=== PATIENT | female | born 1980 ===

== ENCOUNTER 2017-09-29 19:45 | Emergency (ER) | payer SELFPAY ==
[2017-09-29 20:44] VITALS: TEMP 97.8
--- NOTE | 2017-09-29 20:51 | ED PDOC ---
Arrival/HPI - General Chief Complaint: Abdominal Pain Time Seen by Provider: 09/29/17 20:18 Historian: Patient EM Caveat: Acuity of Condition - History of Present Illness Narrative History of Present Illness (Text): 09/29/17 20:47 36 yr old female w/ hx of appendectomy p/w abdominal pain. abd pain started 3 days ago, throbbing, suprapubic, without radiation. She notes pain feels similiar to previous pain. LMP was august 18. No n/v. No consitpation or diarrhea. No dark or bloody stool. No headache, nausea, vomiting or falls. No medications or allergies per pt. No fever, chills or night sweat. No vaginal d/c. No vaginal bleeding. No other complaints. No other complaints 09/30/17 01:01 Time/Duration: Other (3d) Symptom Onset: Gradual Symptom Course: Unchanged Quality: Aching, Throbbing Severity Level: 4 Past Medical History - Provider Review Nursing Documentation Reviewed: Yes - Travel History Have you recently traveled outside [place] w/in the past 3 mons?: No - Past History Past History: Non-Contributing - Infectious Disease Hx of Infectious Diseases: None - Tetanus Immunization Tetanus Immunization: Unknown - Reproductive Menopause: No Currently : Yes - Past Medical History Past Medical History: Non-Contributing (except: has had appendectomy) - Psychiatric Hx Substance Use: No Family/Social History - Physician Review Nursing Documentation Reviewed: Yes Family/Social History: Unknown Family HX Smoking Status: Never Smoked Hx Alcohol Use: Yes Frequency of alcohol use: Socially Hx Substance Use: No Allergies/Home Meds Allergies/Adverse Reactions: Allergies No Known Allergies Allergy (Verified 09/29/17 20:56) Review of Systems - Review of Systems Constitutional: Normal Eyes: Normal ENT: Normal Respiratory: Normal Cardiovascular: Normal Gastrointestinal: Abdominal Pain. absent: Normal Genitourinary Female: Normal Musculoskeletal: Normal Skin: Normal Neurological: Normal Endocrine: Normal Hemo/Lymphatic: Normal Psychiatric: Normal Physical Exam Vital Signs Temp Pulse Resp BP Pulse Ox 09/29/17 23:42 68 18 112/72 98 09/29/17 20:42 97.8 F 83 16 127/68 100 Temperature: Afebrile Blood Pressure: Normal Pulse: Regular Respiratory Rate: Normal Appearance: Positive for: Well-Appearing, Non-Toxic, Comfortable Pain Distress: None Mental Status: Positive for: Alert and Oriented X 3 - Systems Exam Head: Present: Atraumatic, Normocephalic Pupils: Present: PERRL Extroacular Muscles: Present: EOMI Conjunctiva: Present: Normal Mouth: Present: Moist Mucous Membranes Neck: Present: Normal Range of Motion Respiratory/Chest: Present: Clear to Auscultation, Good Air Exchange. No: Respiratory Distress, Accessory Muscle Use Cardiovascular: Present: Regular Rate and Rhythm, Normal S1, S2. No: Murmurs Abdomen: Present: Tenderness (suprapubic). No: Distention, Peritoneal Signs Back: Present: Normal Inspection Upper Extremity: Present: Normal Inspection. No: Cyanosis, Edema Lower Extremity: Present: Normal Inspection. No: Edema Neurological: Present: GCS=15, CN II-XII Intact, Speech Normal Skin: Present: Warm, Dry, Normal Color. No: Rashes Psychiatric: Present: Alert, Oriented x 3, Normal Insight, Normal Concentration Medical Decision Making ED Course and Treatment: 09/29/17 20:53 36 yr old female w/ hx of appendectomy presents with suprapubic abd pain, likely associated pain. No vaginal d/c. No dark or bloody stool. No urinary complains. No RUQ pain on exam. Planning for labs, US. No vaginal bleeding US, labs unremarkable. single IUP. No UTI on labs pain improved. clear for d/c w/ obgyn f/u 09/30/17 01:02 - Lab Interpretations Lab Results: 09/29/17 21:20 09/29/17 21:20 Lab Results 09/29/17 22:43: Urine Color Yellow, Urine Appearance Clear, Urine pH 6.0, Ur Specific [place] 1.020, Urine Protein Negative, Urine Glucose (UA) Negative, Urine Ketones Negative, Urine Blood Negative, Urine Nitrate Negative, Urine Bilirubin Negative, Urine Urobilinogen 0.2, Ur Leukocyte Esterase Negative 09/29/17 21:20: Beta HCG, Quant [id number] H 09/29/17 21:20: Sodium 137, Potassium 4.1, Chloride 103, Carbon Dioxide 23, Anion Gap 15, BUN 10, Creatinine 0.6 L, Est GFR ( Amer) > 60, Est GFR ( Non-Af Amer) > 60, Random Glucose 82, Calcium 9.1, Total Bilirubin 0.3, AST 32, ALT 30, Alkaline Phosphatase 46, Total Protein 7.3, Albumin 4.2, Globulin 3.1, Albumin/Globulin Ratio 1.3, Lipase 98 09/29/17 21:20: WBC 11.8 H, RBC 4.12, Hgb 12.1, Hct 35.2 L, MCV 85.4, MCH 29.4, MCHC 34.4, RDW 14.2, Plt Count 345, MPV 9.4, Gran % 69.1 H, Lymph % (Auto) 23.4 , [place] % (Auto) 6.8 H, Eos % (Auto) 0.4 L, Baso % (Auto) 0.3, Gran # 8.18 H, Lymph # (Auto) 2.8, [place] # (Auto) 0.8 H, Eos # (Auto) 0.1, Baso # (Auto) 0.04 09/29/17 21:20: Urine HCG, Qual Positive 09/29/17 21:00: Blood Type Confirm A POSITIVE 09/29/17 20:40: Blood Type A POSITIVE, Antibody Screen Negative, BBK History Checked No verified bt - RAD Interpretation Radiology Orders: 09/29/17 20:57 OB TRANSVAGINAL [US] Stat - Medication Orders Current Medication Orders: Discontinued Medications Acetaminophen (Tylenol 325mg Tab) 650 mg PO STAT STA Stop: 09/29/17 20:59 Last Admin: 09/29/17 21:23 Dose: 650 mg Sodium Chloride (Sodium Chloride 0.9%) 1,000 mls @ 999 mls/hr IV .Q1H1M STA Stop: 09/29/17 21:58 Last Admin: 09/29/17 21:23 Dose: 999 mls/hr eMAR Start Stop Document 09/29/17 21:23 CNR (Rec: 09/29/17 21:23 CNR [id number]) Intravenous Solution Start Date 09/29/17 Start Time 21:23 End Date 09/29/17 End time 22:23 Total Infusion Time 60 Disposition/Present on Arrival - Present on Arrival Any Indicators Present on Arrival: No History of DVT/PE: No History of Uncontrolled Diabetes: No Urinary Catheter: No History of Decub. Ulcer: No History Surgical Site Infection Following: None - Disposition Have Diagnosis and Disposition been Completed?: Yes Diagnosis: Abdominal pain in Disposition: HOME/ ROUTINE Disposition Time: 23:00 Condition: GOOD Discharge Instructions (ExitCare): Symptoms, Acetaminophen Additional Instructions: KATELYN ATKINSON, thank you for letting us take care of you today. Your provider was Maximilian Barakat and you were treated for ABDOMINAL PAIN. The emergency medical care you received today was directed at your acute symptoms. If you were prescribed any medication, please fill it and take as directed. It may take several days for your symptoms to resolve. Return to the Emergency Department if your symptoms worsen, do not improve, or if you have any other problems. Please contact your doctor or call one of the physicians/clinics you have been referred to that are listed on the Patient Visit Information form that is included in your discharge packet. Bring any paperwork you were given at discharge with you along with any medications you are taking to your follow up visit. Our treatment cannot replace ongoing medical care by a primary care provider outside of the emergency department. Thank you for allowing the [facility] team to be part of your care today. If you had an X-Ray or CT scan: A Radiologist will review the ED reading if any change in treatment is needed we will contact you. If you had a blood, urine, or wound culture: It will take several days for the results, if any change in treatment is needed we will contact you. If you had an STI test: It will take 48 hours for the results. Please call after 1 week if you have not heard back. Referrals: Claus Cruz MD [Staff Provider] - Follow up with primary Roxanne Le MD [Medical Doctor] - Follow up with primary Forms: [employer] (Georgian)
[2017-09-29] MEDS ORDERED: Sodium Chloride 0.9% 1,000 ML IV STA (20:58)
[2017-09-29 21:42] LABS: BASO # 0.04 K/mm3 (0.0-2.0); BASO % 0.3 % (0.0-3.0); EOS # 0.1 (0.0-0.7); EOS % 0.4 % (1.5-5.0); GRAN # 8.18 (1.4-6.5); GRAN % 69.1 % (50.0-68.0); HEMOGLOBIN 12.1 g/dL (12.0-16.0); LYMPH # 2.8 (1.2-3.4); LYMPH % 23.4 % (22.0-35.0); MEAN CELL VOLUME 85.4 fl (80.0-105.0); MEAN CORPUSCULAR HEMOGLOBIN 29.4 pg (25.0-35.0); MEAN CORPUSCULAR HGB CONC 34.4 g/dl (31.0-37.0); MEAN PLATELET VOLUME 9.4 fl (7.0-11.0); MONO # 0.8 (0.1-0.6); MONO % 6.8 % (1.0-6.0); RBC 4.12 10^6/uL (3.5-6.1); RED CELL DISTRIBUTION WIDTH 14.2 % (11.5-14.5); WHITE BLOOD COUNT 11.8 10^3/ul (4.5-11.0)
[2017-09-29 21:43] LABS: ALB/GLOB RATIO 1.3 (1.1-1.8); ALBUMIN 4.2 g/dL (3.0-4.8); ALT/SGPT 30 U/L (7-56); AST/SGOT 32 U/L (14-36); BLOOD UREA NITROGEN 10 mg/dL (7-21); CALCIUM 9.1 mg/dL (8.4-10.5); GFR AFRICAN-AMERICAN > 60; GFR NON-AFRICAN AMERICAN > 60; LIPASE 98 U/L (23-300)
[2017-09-29 23:09] LABS: URINE BILIRUBIN NEGATIVE (NEGATIVE); URINE BLOOD NEGATIVE (NEGATIVE); URINE GLUCOSE (UA) NEGATIVE (NEGATIVE); URINE LEUKOCYTE ESTERASE NEGATIVE Leu/uL (NEGATIVE); URINE PROTEIN NEGATIVE mg/dL (<30 mg/dL); URINE UROBILINOGEN 0.2 E.U./dL (<1 E.U./dL)
[2017-09-29 23:17] LABS: URINE APPEARANCE CLEAR (CLEAR); URINE COLOR YELLOW (YELLOW)
[2017-09-29 23:44] VITALS: BP 112/72; PULSE 68; RESP 18; O2SAT 98
--- NOTE | 2017-09-30 11:28 | US ---
Date of service: 09/29/2017 PROCEDURE: OB Pelvic Ultrasound HISTORY: COMPARISON: None available. FINDINGS: UTERUS: Single Live intrauterine gestation. Yolk sac is visualized. CRL measures 0.44 cm equivalent to 6 weeks and 1 day gestation Gestational sac diameter measures 1.9 cm equivalent to 6 weeks and 2 days gestation age (Ultrasound estimated): 6 weeks and 2 days Date of delivery (Ultrasound estimated) : 05/23/2018 Heart rate: 108 bpm. Lizz-gestational hemorrhage: None. Uterus measures 10.2 x 5.9 x 7.7 cm. No mass CERVIX: Long and closed. No cervical abnormality seen. RIGHT OVARY: Measures 2.8 x 2.2 x 3.4 cm. No mass. Normal flow. There is a 1.0 x 0.7 x 1.1 cm cyst. LEFT OVARY: Measures 2.9 x 1.6 x 2.7 cm. No mass. Normal flow. FREE FLUID: None. OTHER FINDINGS: None. IMPRESSION: Single live intrauterine gestational sac with mean gestational age of 6 weeks and 2 days. The estimated date of delivery by ultrasound is 05/23/2018. The ultrasound dates correspond with the clinical dates.
== END 2017-09-29 23:42 | disposition home or self-care (01) ==
LOC: ED 19:45
DX: O26.891 Other specified pregnancy related conditions, first trimester (principal); R10.9 Unspecified abdominal pain; Z3A.01 Less than 8 weeks gestation of pregnancy
CPT/HCPCS: 76817; 80053; 81003; 83690; 84702; 84703; 85025; 86850; 86900; 96360; 99283; J7030